=== PATIENT | male | born 1945 | race Caucasian/White ===

== ENCOUNTER 2016-10-18 11:32 | Inpatient (IN) ==
[2016-10-18] MEDS ORDERED: ASPIRIN 325 MG TABLET PO STA (11:50)
--- NOTE | 2016-10-18 11:53 | EKG Report ---
Stationary ECG Study 

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
--- NOTE | 2016-10-18 12:21 | CT Report ---
CT head/brain wo con Indication: Syncope Comparison: None Technique: Multiple axial tomographic images of the brain were obtained without the use of intravenous contrast. Findings: Midline structures are nondisplaced. There is no convincing evidence of acute intracranial hemorrhage . Mild global volume loss present. Moderate periventricular and subcortical hypoattenuation noted which is nonspecific but consistent with chronic microvascular ischemic change. Demyelinating process and vasculitis less likely considerations. Old lacunar infarcts involving the bilateral basal ganglia and blevnis radiata. Atherosclerotic calcifications demonstrated. Prior bilateral maxillary antrostomies. The visualized paranasal sinuses and bilateral mastoid air cells are predominantly clear. IMPRESSION: No acute intracranial abnormality demonstrated. Probable chronic microvascular ischemic change, volume loss, and old lacunar infarcts. The CT exam was performed using one or more of the following dose reduction techniques: Automated exposure control, adjustment of the mA and/or kV according to patient size, or use of iterative reconstruction technique. PROCEDURE INTERPRETED AT [facility] DEPARTMENT OF RADIOLOGY Final Report Signed by: Dr Joaquin Ribeiro
[2016-10-18 12:29] LABS: Basophils % 0.5 % (0.0-0.8); Eosinophils # 0.3 10*3/uL (0.0-0.87); Hematocrit 40.9 VOL% (42.0-52.0); Hemoglobin 14.4 GM/DL (14.0-18.0); Immature Granulocytes % 0.4 %; Immature Granulocytes Absolute 0.03 #; Lymphocytes % 23.2 % (21.2-54.2); Mean Corpuscular HGB Conc 35.2 GM/DL (32-36); Mean Corpuscular Hemoglobin 30 PG (27-34); Mean Corpuscular Volume 85.2 FL (87-102); Mean Platelet Volume 11.4 FL (9.6-12.0); Monocytes # 0.7 10*3/uL (0.11-0.8); Neutrophils # 5.5 10*3/uL (1.4-7.4); Neutrophils % 64.9 % (38.7-73.9); Platelet Count 194 T/CUMM (130-400); Red Cell Distribution Width 13.4 % (9.3-17.3); White Blood Count 8.4 T/CUMM (4-12)
[2016-10-18] MEDS ORDERED: ASPIRIN 325 MG TABLET ONE (12:36)
[2016-10-18 12:44] LABS: INR 1.1; PT Patient Result 11.2 SECS; Partial Thromboplastin Time 29.6 SECS (0-40)
[2016-10-18 13:02] LABS: Albumin 3.4 G/DL (3.4-5.0); Bilirubin,Total 0.4 MG/DL (0.2-1.0); Calcium 8.9 MG/DL (8.5-10.1); Osmolality,Calculated 288.3 MOS/KG (273-304); Potassium 3.6 MMOL/L (3.5-5.1); Total Protein 6.3 G/DL (6.4-8.3)
[2016-10-18 13:53] LABS: Apearance,Urine CLEAR (Clear); Bilirubin,Urine Negative (Negative); Blood, Urine Small mg/dL (Negative); Glucose,Urine (UA) Negative (Negative); Ketones,Urine Negative (Negative); Mucus,Urine Occasional /LPF (Occasional); Nitrite,Urine Negative (Negative); Protein,Urine Negative; RBC,Urine 2 /HPF (0-4); Urine Color Yellow (Yellow); Urine Specific Gravity 1.018 (1.001-1.035); Urine Urobilinogen < 2.0 EU/DL (0.2-1.0); WBC,Urine 1 /HPF (0-6)
[2016-10-18 14:01] LABS: Barbiturates Screen,Urine Negative (Negative); Benzodiazepines Screen,Urine Negative (Negative); Cannabinoid Screen,Urine Negative (Negative); Opiate Screen,Urine Negative (Negative); Phencyclidine Screen,Urine Negative (Negative)
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
--- NOTE | 2016-10-18 14:11 | XRay Report ---
XR chest 2V Indication: Syncope. Chest 2 views: Comparison 01/21/2013. Lungs are more hypoinflated with atelectasis. However, bilateral perihilar infiltrates are now present. Peripheral lungs are clear. Heart size is borderline enlarged with continued mild thoracic aortic tortuosity. Impression: Bilateral perihilar infiltrates, concerning for pneumonia although edema could have a similar appearance. Pulmonary hypoinflation as well. PROCEDURE INTERPRETED AT [facility] DEPARTMENT OF RADIOLOGY Final Report Signed by: Peter Haines M.D.
[2016-10-18] MEDS ORDERED: ACETAMINOPHEN 325 MG TABLET PO PRN (15:24)
[2016-10-18] MEDS ORDERED: ONDANSETRON 4 MG/2 ML VIAL IV PRN (15:24)
[2016-10-18] MEDS: SODIUM CHLORIDE 0.9% 1,000 ML IV SCH (16:23)
--- NOTE | 2016-10-18 17:46 | EKG Report ---
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
[2016-10-18] MEDS: ASPIRIN CHEW 81 MG TABLET PO SCH (20:55)
[2016-10-18] MEDS: DOCUSATE SODIUM 100 MG CAPSULE PO SCH (20:55)
[2016-10-18] MEDS: MULTIVITAMIN (CENTRUM) TABLET PO SCH (20:55)
[2016-10-18] MEDS: POTASSIUM GLUCONATE 500 MG TABLET PO SCH (21:42)
[2016-10-19] MEDS: SODIUM CHLORIDE 0.9% 1,000 ML IV SCH ×4 (02:10→21:00)
[2016-10-19 06:01] LABS: Basophils % 0.4 % (0.0-0.8); Eosinophils # 0.3 10*3/uL (0.0-0.87); Eosinophils % 3.6 % (0.00-10.9); Hematocrit 41.6 VOL% (42.0-52.0); Hemoglobin 14.5 GM/DL (14.0-18.0); Immature Granulocytes % 0.2 %; Immature Granulocytes Absolute 0.02 #; Lymphocytes # 2.6 10*3/uL (1.4-4.0); Lymphocytes % 28.7 % (21.2-54.2); Mean Corpuscular HGB Conc 34.9 GM/DL (32-36); Mean Corpuscular Hemoglobin 30 PG (27-34); Mean Corpuscular Volume 85.4 FL (87-102); Mean Platelet Volume 11.5 FL (9.6-12.0); Monocytes # 0.7 10*3/uL (0.11-0.8); Monocytes % 7.5 % (1.7-12.7); Neutrophils # 5.5 10*3/uL (1.4-7.4); Neutrophils % 59.6 % (38.7-73.9); Platelet Count 191 T/CUMM (130-400); Red Blood Count 4.87 MC/CUMM (3.8-5.5); Red Cell Distribution Width 13.3 % (9.3-17.3); White Blood Count 9.2 T/CUMM (4-12)
[2016-10-19 06:31] LABS: Troponin I Only < 0.015 NG/ML (0.00-0.045)
[2016-10-19 06:35] LABS: Albumin 3.4 G/DL (3.4-5.0); Bilirubin,Total 0.8 MG/DL (0.2-1.0); Calcium 8.8 MG/DL (8.5-10.1); Free T4 (Free Thyroxine) 0.99 NG/DL (0.76-1.46); Osmolality,Calculated 281.3 MOS/KG (273-304); Potassium 3.5 MMOL/L (3.5-5.1); Thyroid Stimulating Hormone 2.83 uIU/ml (0.358-3.74); Total Protein 5.9 G/DL (6.4-8.3)
[2016-10-19 07:44] LABS: Sedimentation Rate-Westergren 4 MM/HR (0-20)
[2016-10-19] MEDS ORDERED: ATENOLOL 25 MG TABLET PO SCH (09:00)
[2016-10-19] MEDS ORDERED: amLODIPine 5 MG TABLET PO SCH (09:00)
[2016-10-19] MEDS ORDERED: amLODIPine 10 MG TABLET PO SCH (10:41)
[2016-10-19] MEDS: LISINOPRIL/HCTZ 20-12.5 MG TABLET PO SCH (11:05)
[2016-10-19] MEDS: DOCUSATE SODIUM 100 MG CAPSULE PO SCH ×2 (11:06→21:03)
[2016-10-19] MEDS: GEMFIBROZIL 600 MG TABLET PO SCH (11:07)
[2016-10-19] MEDS: POTASSIUM GLUCONATE 500 MG TABLET PO SCH ×2 (11:07→21:03)
[2016-10-19] MEDS: PANTOPRAZOLE 40 MG TABLET PO SCH (11:08)
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
[2016-10-19] MEDS: RIVASTIGMINE 3 MG CAPSULE PO SCH ×3 (11:09→21:03)
--- NOTE | 2016-10-19 11:26 | EKG Report ---
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
[2016-10-19 11:55] LABS: Troponin I Only < 0.015 NG/ML (0.00-0.045)
[2016-10-19] MEDS: INSULIN REGULAR 100 UNIT/ML SUBCUT SCH ×3 (12:37→21:03)
[2016-10-19 19:10] LABS: Troponin I Only < 0.015 NG/ML (0.00-0.045)
[2016-10-19] MEDS: MULTIVITAMIN (CENTRUM) TABLET PO SCH (21:03)
[2016-10-19] MEDS: ASPIRIN CHEW 81 MG TABLET PO SCH (21:03)
[2016-10-19] MEDS: CARVEDILOL 3.125 MG TABLET PO SCH (21:03)
[2016-10-19] MEDS: MINOXIDIL 2.5 MG TABLET PO SCH (23:34)
[2016-10-20 03:23] LABS: Basophils % 0.4 % (0.0-0.8); Eosinophils # 0.3 10*3/uL (0.0-0.87); Eosinophils % 3.5 % (0.00-10.9); Hematocrit 43.2 VOL% (42.0-52.0); Hemoglobin 15.2 GM/DL (14.0-18.0); Immature Granulocytes % 0.2 %; Immature Granulocytes Absolute 0.02 #; Lymphocytes # 2.8 10*3/uL (1.4-4.0); Lymphocytes % 30.1 % (21.2-54.2); Mean Corpuscular HGB Conc 35.2 GM/DL (32-36); Mean Corpuscular Hemoglobin 30 PG (27-34); Mean Platelet Volume 11.4 FL (9.6-12.0); Monocytes # 0.8 10*3/uL (0.11-0.8); Neutrophils # 5.4 10*3/uL (1.4-7.4); Neutrophils % 57.8 % (38.7-73.9); Platelet Count 209 T/CUMM (130-400); Red Blood Count 5.08 MC/CUMM (3.8-5.5); Red Cell Distribution Width 13.1 % (9.3-17.3); White Blood Count 9.3 T/CUMM (4-12)
[2016-10-20] MEDS: SODIUM CHLORIDE 0.9% 1,000 ML IV SCH (03:51)
[2016-10-20 03:55] LABS: Calcium 8.9 MG/DL (8.5-10.1); Osmolality,Calculated 279.4 MOS/KG (273-304); Potassium 3.7 MMOL/L (3.5-5.1)
[2016-10-20 03:59] LABS: Troponin I Only < 0.015 NG/ML (0.00-0.045)
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
--- NOTE | 2016-10-20 07:08 | EKG Report ---
Stationary ECG Study 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
[2016-10-20] MEDS: INSULIN REGULAR 100 UNIT/ML SUBCUT SCH ×2 (08:32→12:35)
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
[2016-10-20] MEDS: LISINOPRIL/HCTZ 20-12.5 MG TABLET PO SCH (08:54)
[2016-10-20] MEDS: DOCUSATE SODIUM 100 MG CAPSULE PO SCH (08:54)
[2016-10-20] MEDS: MINOXIDIL 2.5 MG TABLET PO SCH (08:54)
[2016-10-20] MEDS: GEMFIBROZIL 600 MG TABLET PO SCH (08:54)
[2016-10-20] MEDS: RIVASTIGMINE 3 MG CAPSULE PO SCH (08:54)
[2016-10-20] MEDS: CARVEDILOL 3.125 MG TABLET PO SCH (08:55)
[2016-10-20] MEDS: POTASSIUM GLUCONATE 500 MG TABLET PO SCH (08:55)
[2016-10-20] MEDS: PANTOPRAZOLE 40 MG TABLET PO SCH (08:55)
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
[2016-10-20 12:02] VITALS: BP 148/94
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
== END 2016-10-20 13:30 | disposition home or self-care (01) | DRG 312 ==
LOC: EDUNIT# → N.ED 11:32 → N.EDINP 14:33 → N.TELES 15:24
PROVIDERS: ADMIT Family Medicine; ATTEND Family Medicine